=== PATIENT | male | born 1935 | race Caucasian/White ===

== ENCOUNTER 2017-03-17 18:19 | Emergency (ER) | payer OTHER, BC ==
[~2017-03-17] VITALS: Ht 180.3 cm; Wt 87.6 kg
[~2017-03-17 18:19] MED LIST: ASPIRIN81 M1 PO; ATORVASTATIN 20; CLOPIDOGREL75 MG; METOPROLOL TART50 MG; TRAMADOL HCL50 MG; WARFARIN SODIUM5 MG
[2017-03-17 22:27] VITALS: BP 110/67
== END 2017-03-17 22:28 | disposition home or self-care (01) ==
LOC: EME 18:19
DX: S01.01XA Laceration without foreign body of scalp, initial encounter (principal); S01.81XA Laceration without foreign body of other part of head, initial encounter; W18.39XA Other fall on same level, initial encounter; I67.1 Cerebral aneurysm, nonruptured; Z79.01 Long term (current) use of anticoagulants; Z79.82 Long term (current) use of aspirin; I48.91 Unspecified atrial fibrillation; I10 Essential (primary) hypertension; Z95.1 Presence of aortocoronary bypass graft; Z87.891 Personal history of nicotine dependence
CPT/HCPCS: 70450; 99281; 99285

== ENCOUNTER 2017-08-11 15:59 | Inpatient (IN) | payer OTHER, BC ==
[~2017-08-11] VITALS: Ht 177.8 cm; Wt 70.0 kg
[~2017-08-11 15:59] MED LIST changes: -ATORVASTATIN 20; +LIPITOR20 MG PO
[2017-08-11 16:40] LABS: HEMATOCRIT 34.3 % (38.0-50.0); HEMOGLOBIN 11.4 G/DL (12.5-16.6); MCH 31.8 PG (29.0-34.0); MCHC 33.2 G/DL (30.0-36.0); MCV 95.8 FL (86-99); PLATELET COUNT 210 K/uL (156-360); RBC DIS.WIDTH-CV 13.1 % (11.8-14.6); RBC DIS.WIDTH-SD 46.8 % (39-53); RED BLOOD COUNT 3.58 M/uL (4.00-5.50); WHITE BLOOD COUNT 8.1 K/uL (4.1-10.2)
[2017-08-11 16:48] LABS: ALBUMIN 3.5 g/dL (3.2-4.8); CHLORIDE 104 mEq/L (99-109); INTER. NORMALIZED RATIO 2.1; POTASSIUM 4.6 mEq/L (3.7-5.4); SODIUM 135 mEq/L (136-147)
[2017-08-11 16:50] LABS: PTT 33.3 SEC (25-37)
[2017-08-11 16:51] LABS: GLUCOSE 135 mg/dL (70-99); TOTAL PROTEIN 6.5 g/dL (6.4-8.3)
[2017-08-11 16:52] LABS: TOTAL BILIRUBIN 0.6 mg/dL (0.0-1.0)
[2017-08-11 16:54] LABS: ALKALINE PHOSPHATASE 102 IU/L (3-129); GFR ESTIMATE (CALCULATED) 34 mL/min/ (58.99-99999)
[2017-08-11 16:55] LABS: UREA NITROGEN (BUN) 22 mg/dL (9-23)
[2017-08-11 16:56] LABS: AST (GOT) 26 IU/L (2-34)
[2017-08-11 16:57] LABS: ALT (GPT) 21 IU/L (3-49)
[2017-08-11] MEDS ORDERED: XARELTO15 MG PO (17:07)
[2017-08-11] MEDS ORDERED: CORDARONE200 MG PO (17:07)
[2017-08-11] MEDS ORDERED: COZAAR25 MG PO (17:07)
[2017-08-11] MEDS ORDERED: VITAMIN D31000 UNIT PO (17:07)
[2017-08-11] MEDS ORDERED: HYTRIN5 MG PO (17:08)
[2017-08-11 20:17] VITALS: BP 130/69
[2017-08-11 23:08] VITALS: BP 107/56
[2017-08-12 03:18] VITALS: BP 112/54
[2017-08-12 08:02] VITALS: BP 108/60
[2017-08-12 12:04] VITALS: BP 116/56
[2017-08-12 16:27] VITALS: BP 126/60
[2017-08-12 20:00] VITALS: BP 119/62
[2017-08-12 23:43] VITALS: BP 142/74
[2017-08-13 03:39] VITALS: BP 144/72
[2017-08-13 06:34] LABS: CHLORIDE 102 MEQ/L (99-109); CREATININE 1.7 MG/DL (0.6-1.3); GFR ESTIMATE (CALCULATED) 41 mL/min/ (58.99-99999); POTASSIUM 4.6 MEQ/L (3.7-5.4); SODIUM 135 MEQ/L (136-147); UREA NITROGEN (BUN) 19 mg/dL (9-23)
[2017-08-13 06:35] LABS: GLUCOSE 98 mg/dL (70-99)
[2017-08-13 06:56] LABS: BASOPHIL (%) 0.3 % (0-1); EOSINOPHIL COUNT 0.1 K/uL (0-0.3); HEMATOCRIT 31.1 % (38.0-50.0); IMMATURE GRANULOCYTE (%) 0.6 % (0.0-0.7); LYMPHOCYTE (%) 4.8 % (15-42); LYMPHOCYTE COUNT 0.5 K/uL (1.0-2.8); MCH 31.4 PG (29.0-34.0); MCHC 32.2 G/DL (30.0-36.0); MCV 97.8 FL (86-99); NEUTROPHIL (%) 84.3 % (45-76); NEUTROPHIL COUNT 9.2 K/uL (1.8-6.4); PLATELET COUNT 195 K/uL (156-360); RBC DIS.WIDTH-CV 13.2 % (11.8-14.6); RBC DIS.WIDTH-SD 47.4 % (39-53); RED BLOOD COUNT 3.18 M/uL (4.00-5.50); WHITE BLOOD COUNT 10.9 K/uL (4.1-10.2)
[2017-08-13 07:18] VITALS: BP 147/76
[2017-08-13 07:24] LABS: INTER. NORMALIZED RATIO 1.4
[2017-08-13 11:40] VITALS: BP 145/68
[2017-08-13 15:45] VITALS: BP 142/72
[2017-08-13 19:59] VITALS: BP 124/61
[2017-08-13 23:02] VITALS: BP 110/57
[2017-08-14 04:35] VITALS: BP 121/65
[2017-08-14 07:20] LABS: BASOPHIL (%) 0.2 % (0-1); EOSINOPHIL (%) 1.1 % (0-5); EOSINOPHIL COUNT 0.2 K/uL (0-0.3); HEMATOCRIT 29.7 % (38.0-50.0); HEMOGLOBIN 9.7 G/DL (12.5-16.6); IMMATURE GRANULOCYTE (%) 0.5 % (0.0-0.7); LYMPHOCYTE COUNT 0.4 K/uL (1.0-2.8); MCH 31.3 PG (29.0-34.0); MCHC 32.7 G/DL (30.0-36.0); MCV 95.8 FL (86-99); MONOCYTE COUNT 1.2 K/uL (0-0.8); NEUTROPHIL (%) 86.2 % (45-76); NEUTROPHIL COUNT 11.5 K/uL (1.8-6.4); PLATELET COUNT 196 K/uL (156-360); RBC DIS.WIDTH-CV 13.1 % (11.8-14.6); RBC DIS.WIDTH-SD 45.7 % (39-53); WHITE BLOOD COUNT 13.3 K/uL (4.1-10.2)
[2017-08-14 07:54] LABS: CHLORIDE 101 MEQ/L (99-109); CREATININE 1.6 MG/DL (0.6-1.3); GFR ESTIMATE (CALCULATED) 44 mL/min/ (58.99-99999); GLUCOSE 133 mg/dL (70-99); POTASSIUM 4.4 MEQ/L (3.7-5.4); SODIUM 134 MEQ/L (136-147); UREA NITROGEN (BUN) 24 mg/dL (9-23)
[2017-08-14 08:15] VITALS: BP 118/57
[2017-08-14 12:03] VITALS: BP 130/63
[2017-08-14 15:54] VITALS: BP 135/62
[2017-08-15 04:04] VITALS: BP 128/66
[2017-08-15 05:27] LABS: BASOPHIL (%) 0.2 % (0-1); EOSINOPHIL COUNT 0.3 K/uL (0-0.3); HEMOGLOBIN 8.7 G/DL (12.5-16.6); IMMATURE GRANULOCYTE (%) 0.4 % (0.0-0.7); LYMPHOCYTE (%) 5.1 % (15-42); LYMPHOCYTE COUNT 0.6 K/uL (1.0-2.8); MCH 32.2 PG (29.0-34.0); MCHC 33.5 G/DL (30.0-36.0); MCV 96.3 FL (86-99); MONOCYTE COUNT 1.5 K/uL (0-0.8); NEUTROPHIL (%) 80.3 % (45-76); NEUTROPHIL COUNT 9.8 K/uL (1.8-6.4); PLATELET COUNT 186 K/uL (156-360); RBC DIS.WIDTH-CV 13.3 % (11.8-14.6); RBC DIS.WIDTH-SD 47.1 % (39-53); WHITE BLOOD COUNT 12.2 K/uL (4.1-10.2)
[2017-08-15 05:55] LABS: CHLORIDE 100 MEQ/L (99-109); CREATININE 1.7 MG/DL (0.6-1.3); GFR ESTIMATE (CALCULATED) 41 mL/min/ (58.99-99999); GLUCOSE 116 mg/dL (70-99); SODIUM 134 MEQ/L (136-147); UREA NITROGEN (BUN) 25 mg/dL (9-23)
[2017-08-15 07:34] VITALS: BP 113/64
[2017-08-15 16:32] VITALS: BP 121/60
[2017-08-16 00:11] VITALS: BP 90/55
[2017-08-16 06:10] LABS: BASOPHIL (%) 0.3 % (0-1); EOSINOPHIL (%) 3.6 % (0-5); EOSINOPHIL COUNT 0.4 K/uL (0-0.3); HEMATOCRIT 24.8 % (38.0-50.0); HEMOGLOBIN 8.1 G/DL (12.5-16.6); IMMATURE GRANULOCYTE (%) 0.6 % (0.0-0.7); LYMPHOCYTE (%) 8.6 % (15-42); LYMPHOCYTE COUNT 0.9 K/uL (1.0-2.8); MCH 31.2 PG (29.0-34.0); MCHC 32.7 G/DL (30.0-36.0); MCV 95.4 FL (86-99); MONOCYTE (%) 11.8 % (3-12); MONOCYTE COUNT 1.3 K/uL (0-0.8); NEUTROPHIL (%) 75.1 % (45-76); NEUTROPHIL COUNT 8.1 K/uL (1.8-6.4); PLATELET COUNT 216 K/uL (156-360); RBC DIS.WIDTH-CV 13.2 % (11.8-14.6); RBC DIS.WIDTH-SD 46.2 % (39-53); WHITE BLOOD COUNT 10.8 K/uL (4.1-10.2)
[2017-08-16 08:06] VITALS: BP 94/56
[2017-08-16 09:51] LABS: CHLORIDE 102 MEQ/L (99-109); CREATININE 1.8 MG/DL (0.6-1.3); GFR ESTIMATE (CALCULATED) 39 mL/min/ (58.99-99999); GLUCOSE 112 mg/dL (70-99); SODIUM 136 MEQ/L (136-147); UREA NITROGEN (BUN) 32 mg/dL (9-23)
[2017-08-16 09:52] LABS: POTASSIUM 4.9 MEQ/L (3.7-5.4)
[2017-08-16 11:40] VITALS: BP 96/56
[2017-08-16 12:00] VITALS: BP 97/53
[2017-08-16 13:00] VITALS: BP 104/55
[2017-08-16 16:06] VITALS: BP 112/60
[2017-08-16] MEDS ORDERED: XARELTO10 MG PO (16:55)
[2017-08-16] MEDS ORDERED: TYLENOL REGULA325 MG PO (16:56)
== END 2017-08-16 19:48 | DRG 470 ==
LOC: EME 15:59 → 3EAST 17:21 → EDOF 17:21 → ENRESERV 17:23 → 3EAST 19:24
PROVIDERS: Emergency Medicine; Family Medicine; Physician Assistant Medical
PROC: 0SRS0J9 Replacement of Left Hip Joint, Femoral Surface with Synthetic Substitute, Cemented, Open Approach (ICD-10-PCS; principal; 2017-08-13)
PROC: 30233N1 Transfusion of Nonautologous Red Blood Cells into Peripheral Vein, Percutaneous Approach (ICD-10-PCS; 2017-08-16)
DX: S72.032A Displaced midcervical fracture of left femur, initial encounter for closed fracture (principal); M96.810 Intraoperative hemorrhage and hematoma of a musculoskeletal structure complicating a musculoskeletal system procedure; I48.0 Paroxysmal atrial fibrillation; I25.10 Atherosclerotic heart disease of native coronary artery without angina pectoris; I70.1 Atherosclerosis of renal artery; I12.9 Hypertensive chronic kidney disease with stage 1 through stage 4 chronic kidney disease, or unspecified chronic kidney disease; N18.3 Chronic kidney disease, stage 3 (moderate); E78.5 Hyperlipidemia, unspecified; F05 Delirium due to known physiological condition; I25.5 Ischemic cardiomyopathy; W01.0XXA Fall on same level from slipping, tripping and stumbling without subsequent striking against object, initial encounter; I35.0 Nonrheumatic aortic (valve) stenosis; H35.30 Unspecified macular degeneration; Z95.5 Presence of coronary angioplasty implant and graft; Z79.899 Other long term (current) drug therapy; Z90.5 Acquired absence of kidney; Z72.0 Tobacco use; Z95.1 Presence of aortocoronary bypass graft; Z79.82 Long term (current) use of aspirin; Z79.01 Long term (current) use of anticoagulants; I25.2 Old myocardial infarction
CPT/HCPCS: 71045; 71046; 73130; 73502; 80048; 80053; 85025; 85027; 85610; 85730; 86850; 86900; 86901; 86920; 93005; 94799; 99281; 99285; C1713; J0690; J1940; J2250; J2270; J2405; J2710; J3010; J7120; P9016

== ENCOUNTER 2017-11-16 13:34 | Inpatient (IN) | payer OTHER, BC ==
[~2017-11-16] VITALS: Ht 165.1 cm; Wt 56.8 kg
[~2017-11-16 13:34] MED LIST changes: +CORDARONE200 MG PO; +COZAAR25 MG PO; +HYTRIN5 MG PO; +TYLENOL REGULA325 MG PO; +VITAMIN D31000 UNIT PO; +XARELTO10 MG PO; +XARELTO15 MG PO
[2017-11-16 14:15] LABS: APPEARANCE SL.HAZY ((CLEAR)); BILIRUBIN NEGATIVE; BLOOD NEGATIVE; COLOR YELLOW ((YELLOW)); GLUCOSE (STRIP) NEGATIVE; KETONES NEGATIVE; LEUKOCYTES TRACE; NITRITE NEGATIVE; PROTEIN (STRIP) 30; SPECIFIC GRAVITY 1.019 (1.000-1.030); UROBILINOGEN 0.2 MG/DL (0.2-1.0)
[2017-11-16 14:23] LABS: BACTERIA RARE /HPF; EPITHELIAL CELLS RARE /HPF; HYALINE CASTS 0-5 /LPF; MUCUS TRACE /LPF; UCUL ADDED? YES; WHITE BLOOD CELLS 30-40 /HPF (0-5)
[2017-11-16 14:26] LABS: BASOPHIL (%) 0.2 % (0-1); EOSINOPHIL (%) 0.8 % (0-5); EOSINOPHIL COUNT 0.1 K/uL (0-0.3); HEMATOCRIT 33.1 % (38.0-50.0); HEMOGLOBIN 10.6 G/DL (12.5-16.6); IMMATURE GRANULOCYTE (%) 0.3 % (0.0-0.7); LYMPHOCYTE (%) 9.3 % (15-42); LYMPHOCYTE COUNT 0.9 K/uL (1.0-2.8); MCH 30.6 PG (29.0-34.0); MCV 95.7 FL (86-99); MONOCYTE (%) 10.5 % (3-12); MONOCYTE COUNT 1.1 K/uL (0-0.8); NEUTROPHIL (%) 78.9 % (45-76); PLATELET COUNT 232 K/uL (156-360); RBC DIS.WIDTH-CV 15.8 % (11.8-14.6); RBC DIS.WIDTH-SD 55.1 % (39-53); RED BLOOD COUNT 3.46 M/uL (4.00-5.50); WHITE BLOOD COUNT 10.2 K/uL (4.1-10.2)
[2017-11-16 14:35] LABS: CHLORIDE 106 mEq/L (99-109); POTASSIUM 4.4 mEq/L (3.7-5.4); SODIUM 140 mEq/L (136-147)
[2017-11-16 14:37] LABS: GLUCOSE 86 mg/dL (70-99)
[2017-11-16 14:41] LABS: CREATININE 2.6 mg/dL (0.6-1.3); GFR ESTIMATE (CALCULATED) 25 mL/min/ (58.99-99999); UREA NITROGEN (BUN) 44 mg/dL (9-23)
[2017-11-16 14:43] LABS: LIPASE 133 U/L (1.0-51.0)
[2017-11-16] MEDS ORDERED: MIRTAZAPINE15 MG PO (16:28)
[2017-11-16] MEDS ORDERED: XARELTO15 MG PO (16:28)
[2017-11-16] MEDS ORDERED: DRONABINOL2.5 MG PO (16:29)
[2017-11-16 18:19] LABS: ALBUMIN 2.9 g/dL (3.2-4.8)
[2017-11-16 18:21] LABS: TOTAL PROTEIN 5.9 g/dL (6.4-8.3)
[2017-11-16 18:23] LABS: TOTAL BILIRUBIN 0.9 mg/dL (0.0-1.0)
[2017-11-16 18:24] LABS: ALKALINE PHOSPHATASE 100 IU/L (3-129)
[2017-11-16 18:27] LABS: ALT (GPT) 56 IU/L (3-49); AST (GOT) 76 IU/L (2-34); DIRECT BILIRUBIN 0.5 mg/dL (0.0-0.3)
[2017-11-16 19:45] LABS: INTACT PARATHYROID HORMONE 14 pg/mL (10-69)
[2017-11-16 21:45] VITALS: BP 122/66
[2017-11-17] VITALS (7 sets, daily range): BP systolic 91–153; BP diastolic 52–71
[2017-11-17 05:59] LABS: BASOPHIL (%) 0.4 % (0-1); EOSINOPHIL COUNT 0.2 K/uL (0-0.3); HEMATOCRIT 31.9 % (38.0-50.0); HEMOGLOBIN 10.4 G/DL (12.5-16.6); IMMATURE GRANULOCYTE (%) 0.5 % (0.0-0.7); MCH 31.3 PG (29.0-34.0); MCHC 32.6 G/DL (30.0-36.0); MCV 96.1 FL (86-99); MONOCYTE (%) 12.2 % (3-12); MONOCYTE COUNT 1.2 K/uL (0-0.8); NEUTROPHIL (%) 74.9 % (45-76); NEUTROPHIL COUNT 7.3 K/uL (1.8-6.4); PLATELET COUNT 216 K/uL (156-360); RBC DIS.WIDTH-CV 15.9 % (11.8-14.6); RBC DIS.WIDTH-SD 55.8 % (39-53); RED BLOOD COUNT 3.32 M/uL (4.00-5.50); WHITE BLOOD COUNT 9.8 K/uL (4.1-10.2)
[2017-11-17 06:23] LABS: CHLORIDE 108 MEQ/L (99-109); CREATININE 2.5 MG/DL (0.6-1.3); GFR ESTIMATE (CALCULATED) 26 mL/min/ (58.99-99999); GLUCOSE 73 mg/dL (70-99); POTASSIUM 4.4 MEQ/L (3.7-5.4); SODIUM 140 MEQ/L (136-147); UREA NITROGEN (BUN) 44 mg/dL (9-23)
[2017-11-18 03:40] VITALS: BP 120/62
[2017-11-18 08:07] VITALS: BP 122/57
[2017-11-18 11:37] VITALS: BP 132/63
[2017-11-18 12:31] LABS: CHLORIDE 108 MEQ/L (99-109); CREATININE 2.1 MG/DL (0.6-1.3); GFR ESTIMATE (CALCULATED) 32 mL/min/ (58.99-99999); POTASSIUM 4.6 MEQ/L (3.7-5.4); SODIUM 140 MEQ/L (136-147); THYROTROPIN (TSH) 3.1 MIU/L (0.4-5.5); UREA NITROGEN (BUN) 35 mg/dL (9-23)
[2017-11-18 12:35] LABS: GLUCOSE 98 mg/dL (70-99)
[2017-11-18 16:51] VITALS: BP 121/71
[2017-11-18 19:32] VITALS: BP 140/65
[2017-11-19 00:25] VITALS: BP 131/68
[2017-11-19 04:16] VITALS: BP 131/70
[2017-11-19 05:07] LABS: BASOPHIL (%) 0.3 % (0-1); EOSINOPHIL (%) 4.6 % (0-5); EOSINOPHIL COUNT 0.4 K/uL (0-0.3); HEMATOCRIT 27.8 % (38.0-50.0); HEMOGLOBIN 9.1 G/DL (12.5-16.6); IMMATURE GRANULOCYTE (%) 0.5 % (0.0-0.7); LYMPHOCYTE (%) 10.1 % (15-42); LYMPHOCYTE COUNT 0.8 K/uL (1.0-2.8); MCHC 32.7 G/DL (30.0-36.0); MCV 94.6 FL (86-99); MONOCYTE (%) 13.2 % (3-12); NEUTROPHIL (%) 71.3 % (45-76); NEUTROPHIL COUNT 5.6 K/uL (1.8-6.4); PLATELET COUNT 188 K/uL (156-360); RBC DIS.WIDTH-CV 15.1 % (11.8-14.6); RBC DIS.WIDTH-SD 52.3 % (39-53); RED BLOOD COUNT 2.94 M/uL (4.00-5.50); WHITE BLOOD COUNT 7.8 K/uL (4.1-10.2)
[2017-11-19 05:21] LABS: ALBUMIN 2.3 g/dL (3.2-4.8); CHLORIDE 110 mEq/L (99-109); POTASSIUM 3.8 mEq/L (3.7-5.4); SODIUM 139 mEq/L (136-147)
[2017-11-19 05:24] LABS: GLUCOSE 101 mg/dL (70-99)
[2017-11-19 05:27] LABS: ALKALINE PHOSPHATASE 85 IU/L (3-129); CREATININE 1.9 mg/dL (0.6-1.3); GFR ESTIMATE (CALCULATED) 36 mL/min/ (58.99-99999)
[2017-11-19 05:28] LABS: UREA NITROGEN (BUN) 31 mg/dL (9-23)
[2017-11-19 05:29] LABS: AST (GOT) 76 IU/L (2-34)
[2017-11-19 05:30] LABS: ALT (GPT) 41 IU/L (3-49)
[2017-11-19 05:33] LABS: TOTAL BILIRUBIN 0.5 mg/dL (0.0-1.0); TOTAL PROTEIN 4.6 g/dL (6.4-8.3)
[2017-11-19 07:40] VITALS: BP 99/54
[2017-11-19 12:04] VITALS: BP 128/57
[2017-11-19 17:01] VITALS: BP 139/63
[2017-11-19 20:00] VITALS: BP 109/64
[2017-11-20 00:14] VITALS: BP 102/71
[2017-11-20 03:55] VITALS: BP 164/83
[2017-11-20 05:30] LABS: BASOPHIL (%) 0.2 % (0-1); EOSINOPHIL (%) 1.9 % (0-5); EOSINOPHIL COUNT 0.2 K/uL (0-0.3); HEMOGLOBIN 9.3 G/DL (12.5-16.6); IMMATURE GRANULOCYTE (%) 0.3 % (0.0-0.7); LYMPHOCYTE (%) 6.9 % (15-42); LYMPHOCYTE COUNT 0.8 K/uL (1.0-2.8); MCH 30.6 PG (29.0-34.0); MCHC 32.1 G/DL (30.0-36.0); MCV 95.4 FL (86-99); MONOCYTE (%) 9.8 % (3-12); MONOCYTE COUNT 1.2 K/uL (0-0.8); NEUTROPHIL (%) 80.9 % (45-76); NEUTROPHIL COUNT 9.8 K/uL (1.8-6.4); PLATELET COUNT 196 K/uL (156-360); RBC DIS.WIDTH-CV 15.3 % (11.8-14.6); RED BLOOD COUNT 3.04 M/uL (4.00-5.50); WHITE BLOOD COUNT 12.1 K/uL (4.1-10.2)
[2017-11-20 05:34] LABS: INTER. NORMALIZED RATIO 1.4
[2017-11-20 05:37] LABS: PTT 30.3 SEC (25-37)
[2017-11-20 06:03] LABS: CHLORIDE 107 MEQ/L (99-109); CREATININE 1.8 MG/DL (0.6-1.3); GFR ESTIMATE (CALCULATED) 39 mL/min/ (58.99-99999); GLUCOSE 94 mg/dL (70-99); POTASSIUM 3.3 MEQ/L (3.7-5.4); SODIUM 139 MEQ/L (136-147); UREA NITROGEN (BUN) 22 mg/dL (9-23)
[2017-11-20 08:15] VITALS: BP 130/67
[2017-11-20 13:06] VITALS: BP 102/55
[2017-11-20 16:30] VITALS: BP 115/67
[2017-11-20 20:39] VITALS: BP 120/68
[2017-11-21] VITALS (8 sets, daily range): BP systolic 112–138; BP diastolic 58–70
[2017-11-21 05:28] LABS: BASOPHIL (%) 0.2 % (0-1); EOSINOPHIL (%) 4.4 % (0-5); EOSINOPHIL COUNT 0.5 K/uL (0-0.3); HEMATOCRIT 26.6 % (38.0-50.0); HEMOGLOBIN 8.5 G/DL (12.5-16.6); IMMATURE GRANULOCYTE (%) 0.4 % (0.0-0.7); LYMPHOCYTE (%) 9.1 % (15-42); LYMPHOCYTE COUNT 0.9 K/uL (1.0-2.8); MCH 30.9 PG (29.0-34.0); MCV 96.7 FL (86-99); NEUTROPHIL (%) 75.9 % (45-76); NEUTROPHIL COUNT 7.8 K/uL (1.8-6.4); PLATELET COUNT 186 K/uL (156-360); RBC DIS.WIDTH-CV 15.3 % (11.8-14.6); RBC DIS.WIDTH-SD 54.3 % (39-53); RED BLOOD COUNT 2.75 M/uL (4.00-5.50); WHITE BLOOD COUNT 10.2 K/uL (4.1-10.2)
[2017-11-21 05:56] LABS: CHLORIDE 108 MEQ/L (99-109); CREATININE 1.8 MG/DL (0.6-1.3); GFR ESTIMATE (CALCULATED) 39 mL/min/ (58.99-99999); GLUCOSE 88 mg/dL (70-99); POTASSIUM 3.4 MEQ/L (3.7-5.4); SODIUM 140 MEQ/L (136-147); UREA NITROGEN (BUN) 19 mg/dL (9-23)
[2017-11-22 04:04] VITALS: BP 117/68
[2017-11-22 07:15] VITALS: BP 122/64
[2017-11-22 10:30] VITALS: BP 145/74
[2017-11-22 19:37] VITALS: BP 108/55
[2017-11-22 23:46] VITALS: BP 139/67
[2017-11-23 03:52] VITALS: BP 148/79
[2017-11-23 07:46] LABS: BASOPHIL (%) 0.3 % (0-1); EOSINOPHIL (%) 5.7 % (0-5); EOSINOPHIL COUNT 0.4 K/uL (0-0.3); HEMATOCRIT 27.6 % (38.0-50.0); IMMATURE GRANULOCYTE (%) 0.4 % (0.0-0.7); LYMPHOCYTE (%) 13.1 % (15-42); LYMPHOCYTE COUNT 0.9 K/uL (1.0-2.8); MCH 30.8 PG (29.0-34.0); MCHC 32.6 G/DL (30.0-36.0); MCV 94.5 FL (86-99); MONOCYTE (%) 12.8 % (3-12); MONOCYTE COUNT 0.9 K/uL (0-0.8); NEUTROPHIL (%) 67.7 % (45-76); NEUTROPHIL COUNT 4.7 K/uL (1.8-6.4); PLATELET COUNT 204 K/uL (156-360); RBC DIS.WIDTH-SD 51.8 % (39-53); RED BLOOD COUNT 2.92 M/uL (4.00-5.50)
[2017-11-23 08:00] VITALS: BP 134/80
[2017-11-23 08:15] LABS: ALKALINE PHOSPHATASE 75 IU/L (3-129); ALT (GPT) 21 IU/L (3-49); AST (GOT) 31 IU/L (2-34); CHLORIDE 105 MEQ/L (99-109); CREATININE 1.7 MG/DL (0.6-1.3); GFR ESTIMATE (CALCULATED) 41 mL/min/ (58.99-99999); GLUCOSE 88 mg/dL (70-99); POTASSIUM 3.5 MEQ/L (3.7-5.4); SODIUM 136 MEQ/L (136-147); TOTAL BILIRUBIN 0.5 MG/DL (0.0-1.0); TOTAL PROTEIN 4.3 G/DL (6.4-8.3); UREA NITROGEN (BUN) 13 mg/dL (9-23)
[2017-11-23 13:18] VITALS: BP 131/66
[2017-11-23 15:52] VITALS: BP 144/73
[2017-11-23 20:17] VITALS: BP 149/79
[2017-11-23 22:23] VITALS: BP 145/74
[2017-11-24 03:11] VITALS: BP 130/70
[2017-11-24 07:39] VITALS: BP 118/66
[2017-11-24 12:04] VITALS: BP 122/65
[2017-11-24 16:36] VITALS: BP 126/78
[2017-11-24 20:34] VITALS: BP 111/66
[2017-11-25 00:36] VITALS: BP 115/62
[2017-11-25 03:42] VITALS: BP 165/58
[2017-11-25 08:17] VITALS: BP 139/67
[2017-11-25 11:17] VITALS: BP 122/71
[2017-11-25 17:17] VITALS: BP 126/69
[2017-11-26 00:44] VITALS: BP 133/71
[2017-11-26 05:17] VITALS: BP 130/72
[2017-11-26 07:41] VITALS: BP 114/61
[2017-11-26 10:43] VITALS: BP 133/72
[2017-11-26 15:59] VITALS: BP 129/68
[2017-11-26] MEDS ORDERED: TAMSULOSIN HCL0.4 MG PO (16:19)
== END 2017-11-26 17:51 | DRG 690 ==
LOC: EME 13:34 → EDOF 16:31 → ENRESERV 16:40 → 3EAST 21:08
PROVIDERS: Emergency Medicine; Family Medicine; Internal Medicine; Radiology Diagnostic Radiology
PROC: 0WBH3ZX Excision of Retroperitoneum, Percutaneous Approach, Diagnostic (ICD-10-PCS; principal; 2017-11-21)
DX: N39.0 Urinary tract infection, site not specified (principal); C78.7 Secondary malignant neoplasm of liver and intrahepatic bile duct; C80.1 Malignant (primary) neoplasm, unspecified; B95.2 Enterococcus as the cause of diseases classified elsewhere; N17.9 Acute kidney failure, unspecified; E83.52 Hypercalcemia; E86.0 Dehydration; E87.6 Hypokalemia; I49.5 Sick sinus syndrome; R00.1 Bradycardia, unspecified; E46 Unspecified protein-calorie malnutrition; R64 Cachexia; I12.9 Hypertensive chronic kidney disease with stage 1 through stage 4 chronic kidney disease, or unspecified chronic kidney disease; N18.3 Chronic kidney disease, stage 3 (moderate); D64.9 Anemia, unspecified; E78.5 Hyperlipidemia, unspecified; F32.9 Major depressive disorder, single episode, unspecified; I25.10 Atherosclerotic heart disease of native coronary artery without angina pectoris; I25.5 Ischemic cardiomyopathy; I35.0 Nonrheumatic aortic (valve) stenosis; I48.0 Paroxysmal atrial fibrillation; I72.6 Aneurysm of vertebral artery; N40.0 Benign prostatic hyperplasia without lower urinary tract symptoms; F05 Delirium due to known physiological condition; I77.810 Thoracic aortic ectasia; Z96.642 Presence of left artificial hip joint; Z79.01 Long term (current) use of anticoagulants; Z86.73 Personal history of transient ischemic attack (TIA), and cerebral infarction without residual deficits; Z87.891 Personal history of nicotine dependence; Z90.5 Acquired absence of kidney; Z95.1 Presence of aortocoronary bypass graft; Z68.20 Body mass index [BMI] 20.0-20.9, adult
CPT/HCPCS: 70450; 70551; 71045; 71250; 74176; 76770; 77012; 80048; 80053; 80076; 81003; 82140; 82330; 82948; 83605; 83690; 83970; 84153; 84439; 84443; 85025; 85610; 85730; 87077; 87086; 87186; 88307; 88313; 88341 TC; 88342 TC; 92526 GN; 92610 GN; 93005; 97530 GO; 97530 GP; 99281; 99284; A6214; G0378; J0290; J0696; J1940; J2060; J7030; J7050; Q0167